=== PATIENT | female | born 1955 | race Two or more races ===

== ENCOUNTER 2019-01-01 20:31 | Inpatient (IN) | payer MEDICARE, OTHER ==
[~2019-01-01] VITALS: Ht 165.1 cm; Wt 101.3 kg
--- NOTE | 2019-01-01 20:45 | NUR ---
PT [id number] FROM HOME S/P WITNESS SYNCOPAL EPISODE ABOUT 20 SECONDS. -TRAUMA. +N/V,-D. BS 120. REC'D ABOUT 500ML NS EN ROUTE BY RA. PT AOX4. NAD NOTED. RESP EVEN AND UNLABORED. PT ON MONITOR IN BED 10 AWAITING MD DOWNING.
--- NOTE | 2019-01-01 21:25 | NUR ---
TECH AT BEDSIDE FOR EKG
[2019-01-01 22:07] LABS: ABG OXYGEN SATURATION 96.7 % (92.0-98.5); ABG PCO2 32.8 mmHg (35.0-45.0); ABG PH 7.524 (7.350-7.450); AaDO2 24.5 mmHg; COHb 0.3 % (0.5-1.5); MetHb 0.4 % (0.0-1.5); SITE, ABG Right Radial; VENT MODE, BG room air
--- NOTE | 2019-01-01 22:11 | NUR ---
PHLEB AT BEDSIDE FOR LAB DRAW
[2019-01-01] MEDS ORDERED: IV NS 0.9% 500 ML BAG IV ONE (22:30)
[2019-01-01 22:34] LABS: BASOPHILS % (AUTO) 0.3 % (0.0-2.0); EOSINOPHILS % (AUTO) 11.5 % (0.0-6.0); HEMATOCRIT 40 % (33-45); HEMOGLOBIN 13.9 g/dL (11.5-14.8); LYMPHOCYTES # (AUTO) 1.5 /CMM (0.8-4.8); LYMPHOCYTES % (AUTO) 11.4 % (20.0-44.0); MEAN CORPUSCULAR HGB CONC 35 g/dl (31.0-36.0); MEAN CORPUSCULAR VOLUME 90 fL (82-100); MONOCYTES # (AUTO) 0.9 /CMM (0.1-1.30); MONOCYTES % (AUTO) 6.6 % (2.0-12.0); NEUTROPHILS # (AUTO) 9.1 /CMM (1.8-8.9); NEUTROPHILS % (AUTO) 70.2 % (43.0-81.0); PLATELET COUNT (AUTO) 256 /CMM (150-450); RED BLOOD CELL COUNT(AUTO) 4.47 MIL/uL (4.0-5.2); WHITE BLOOD COUNT (AUTO) 12.9 K/uL (4.3-11.0)
[2019-01-01 22:43] LABS: CALCIUM, SERUM 9.3 mg/dL (8.5-10.1); CREATININE 1.1 mg/dL (0.6-1.3); POTASSIUM 2.9 mmol/L (3.5-5.1)
[2019-01-01 22:55] LABS: BILIRUBIN,TOTAL 1.7 mg/dL (0.2-1.0); TOTAL PROTEIN, SERUM 7.7 g/dL (6.4-8.2)
[2019-01-01 22:56] LABS: THYROID STIMULATING HORMONE 1.411 uIU/mL (0.358-3.74)
[2019-01-01] MEDS ORDERED: POTASSIUM CHLORIDE 20 MEQ TAB.PRT.SR PO ONE ×2 (23:30→23:33)
--- NOTE | 2019-01-01 23:32 | NUR ---
URINE COLLECTED AND SENT TO LAB
[2019-01-02] VITALS (9 sets, daily range): BP systolic 98–137; BP diastolic 57–86
--- NOTE | 2019-01-02 00:07 | NUR ---
RECEIVED CALL FROM LAB STATING NOT ENOUGH URINE. MADE AWARE.
--- NOTE | 2019-01-02 00:21 | NUR ---
PT TO BED 321-2
--- NOTE | 2019-01-02 00:30 | NUR ---
CALLED EPIC PANEL FOR ADMISSION, WAITING FOR [employer]OCIATE TIFFANY CALL BACK
[2019-01-02 00:53] LABS: APPEARANCE,URINE CLEAR (CLEAR); BILIRUBIN,URINE NEGATIVE (NEGATIVE); BLOOD, URINE TRACE-INTA Ery/uL (NEGATIVE); COLOR,URINE YELLOW (YELLOW); KETONES,URINE NEGATIVE (NEGATIVE); LEUKOCYTE ESTERASE ,URINE NEGATIVE (NEGATIVE); NITRITE, URINE NEGATIVE (NEGATIVE); PROTEIN,URINE NEGATIVE (NEGATIVE); UGLUCOSE NEGATIVE (NEGATIVE); UROBILINOGEN,URINE 0.2 EU/dL (0.2)
[2019-01-02 00:56] LABS: RBC,URINE 0-2 /HPF (0-2)
[2019-01-02 00:57] LABS: BACTERIA,URINE Rare /HPF (None Seen); SQUAMOUS EPITHELIAL CELL,UR Few /HPF (None Seen); WBC,URINE 0-2 /HPF (0-3)
[2019-01-02] MEDS ORDERED: Z GUARD REMEDY 2 OZ OINT TP PRN (01:00)
[2019-01-02] MEDS ORDERED: ACETAMINOPHEN 325 MG TABLET PO PRN (01:00)
[2019-01-02] MEDS ORDERED: MAG HYDROX/AL HYDROX/SIMETH 30 ML UDC PO PRN (01:00)
[2019-01-02] MEDS ORDERED: DEXTROSE 50%-WATER 50 ML DISP.SYRIN IV PRN (01:00)
[2019-01-02] MEDS ORDERED: MAGNESIUM HYDROXIDE 30 ML UDC PO PRN (01:00)
[2019-01-02] MEDS ORDERED: ONDANSETRON HCL/PF 4 MG/2 ML VIAL IVP PRN (01:00)
[2019-01-02] MEDS ORDERED: VANCOMYCIN 1.5 GM in IV D5W 500ml IV ONE (02:00)
--- NOTE | 2019-01-02 02:51 | NUR ---
REPORT GIVEN TO ALPHONSE CHANG FOR STEPHANIE
--- NOTE | 2019-01-02 03:15 | NUR ---
RN Notes Admitted patient from ER via gurney, awake, alert and oriented x3. Denies pain, nausea and vomiting at this time. Attached to telemonitor which reads normal sinus rhythm with heart rate at 67. Iv access on left AC patent and intact. Skin check done, clear and intact. Plan of care discussed with the patient and verbalized understanding.Safety measures and fall precaution in place with call light with in reach. Will continue to monitor patient.
[2019-01-02] MEDS: IV NS 0.9% 1,000 ML IV PRN ×2 (03:55→09:13)
[2019-01-02] MEDS ORDERED: VANCOMYCIN 500 MG VIAL ONE (04:19)
[2019-01-02] MEDS ORDERED: VANCOMYCIN 1 GM VIAL ONE (04:19)
[2019-01-02] MEDS ORDERED: PIPERACILLIN /TAZOBACTAM 3.375 G in IV D5W 50 ML IV SCH (06:00)
[2019-01-02] MEDS ORDERED: PIPERACILLIN /TAZOBACTAM 3.375 G VIAL IV ONE (06:06)
[2019-01-02] MEDS: BLOOD SUGAR DIAGNOSTIC 1 EACH STRIP IN SCH ×4 (07:08→21:27)
--- NOTE | 2019-01-02 07:35 | NUR ---
RN Notes Patient stable. Denies pain, nausea and vomiting. Ambulates to the bathroom with assist, patient verbalized right sided weakness. Fall precaution observed. All needs Attended. Endorsed to morning RN for continuity of care.
--- NOTE | 2019-01-02 08:00 | NUR ---
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 Denies pain. Attached to telemonitor which reads normal sinus rhythm with heart rate at 67. Iv access on left AC patent and intact with IVF NS at 100 ml/hr infusing well. Skin intact. Plan of care discussed with the patient and verbalized understanding.Safety measures and fall precaution in place with call light with in reach. Will continue to monitor patient.
[2019-01-02] MEDS ORDERED: HYDR25TA4 PO (08:10)
[2019-01-02] MEDS ORDERED: HYDR200T81 PO (08:10)
[2019-01-02] MEDS ORDERED: LOSA50TA39 PO (08:10)
[2019-01-02] MEDS ORDERED: LORA1TAB PO (08:10)
[2019-01-02] MEDS ORDERED: ESOM20CA PO (08:10)
[2019-01-02] MEDS ORDERED: FLEC100T2 PO (08:10)
[2019-01-02] MEDS ORDERED: NICO-677 TD (08:10)
[2019-01-02] MEDS ORDERED: ATOR40TA PO (08:10)
[2019-01-02] MEDS ORDERED: ASPI-1152 PO (08:10)
[2019-01-02] MEDS ORDERED: IBUP-1953 PO (08:10)
[2019-01-02] MEDS ORDERED: APIX5TAB PO (08:10)
[2019-01-02] MEDS ORDERED: ACET-2605 PO (08:10)
[2019-01-02] MEDS ORDERED: METO25TA3 PO (08:10)
[2019-01-02] MEDS ORDERED: FEE PK DOSING 1 MIN EA MC ONE (08:27)
[2019-01-02] MEDS ORDERED: NICOTINE PATCH (21MG) 21 MG PATCH.TD24 TD SCH (09:00)
[2019-01-02] MEDS ORDERED: PANTOPRAZOLE 40 MG VIAL IV SCH (09:00)
[2019-01-02] MEDS: ASPIRIN EC 81 MG TABLET.DR PO SCH (09:16)
[2019-01-02 09:22] LABS: THYROID STIMULATING HORMONE 1.035 uIU/mL (0.358-3.74)
[2019-01-02 09:23] LABS: PHOSPHORUS 3.5 mg/dL (2.5-4.9)
[2019-01-02] MEDS: HYDROXYCHLOROQUINE 200 MG TABLET PO SCH (10:08)
[2019-01-02] MEDS: FLECAINIDE ACETATE (100 MG) 100 MG TABLET PO SCH ×2 (10:09→21:22)
[2019-01-02] MEDS: PANTOPRAZOLE 40 MG TABLET.DR PO SCH (10:11)
[2019-01-02] MEDS: APIXABAN 5 MG TABLET PO SCH ×2 (11:29→18:04)
[2019-01-02] MEDS: CEFTRIAXONE 1 G in IV D5W 50 ML IV SCH (12:50)
--- NOTE | 2019-01-02 14:43 | NUR ---
ROBERT was informed by outsole caser Renae Boogie that pt. is interested in applying for In Home Support Services. ROBERT initiated [facility] process by calling [facility] . ROBERT spoke with [facility] ROBERT Corral and initiated the process. Pt's [facility] case ID number is [id number]. ROBERT updated Renae Boogie regarding SS application being initiated.
[2019-01-02] MEDS ORDERED: VANCOMYCIN 1 GM in IV D5W 250 ML IV SCH (17:00)
[2019-01-02] MEDS ORDERED: ATORVASTATIN 40 MG TABLET PO SCH (18:00)
--- NOTE | 2019-01-02 18:00 | NUR ---
PT RESTING IN BED DENYING ANY PAIN OR DISTRESS AND JUST C/O SHE CAN'T SLEEP.TYLENOL AND ATIVAN GIVEN WITH EFFECTIVE RESULT.CALM ENVIRONMENT AND DIM LIGHT PROVIDED.CALL LIGHT PLACED WITHIN REACH.
[2019-01-02] MEDS: LORAZEPAM 1 MG TABLET PO PRN (18:10)
--- NOTE | 2019-01-02 19:15 | NUR ---
RN Notes Received patient awake, on room air and tolerated well. Patient denies pain, nausea and vomiting. Verbalizing weakness on her right arm and leg and hard of hearing on her more on right ear. Plan of care discussed with the patient and verbalized understanding. Safety measures and fall precaution in place with call light within reach. Will continue to monitor patient.
[2019-01-03 06:08] LABS: BASOPHILS % (AUTO) 0.3 % (0.0-2.0); EOSINOPHILS % (AUTO) 16.2 % (0.0-6.0); HEMATOCRIT 41 % (33-45); HEMOGLOBIN 13.9 g/dL (11.5-14.8); LYMPHOCYTES % (AUTO) 7.3 % (20.0-44.0); MEAN CORPUSCULAR HGB CONC 34 g/dl (31.0-36.0); MEAN CORPUSCULAR VOLUME 91 fL (82-100); MONOCYTES # (AUTO) 0.8 /CMM (0.1-1.30); MONOCYTES % (AUTO) 5.7 % (2.0-12.0); NEUTROPHILS # (AUTO) 9.4 /CMM (1.8-8.9); NEUTROPHILS % (AUTO) 70.5 % (43.0-81.0); PLATELET COUNT (AUTO) 217 /CMM (150-450); WHITE BLOOD COUNT (AUTO) 13.4 K/uL (4.3-11.0)
[2019-01-03 06:23] LABS: ALANINE AMINOTRANSFERASE 300 U/L (12-78); ALBUMIN 2.9 g/dL (3.4-5.0); ALKALINE PHOSPHATASE 497 U/L (46-116); ASPARTATE AMINOTRANSFERASE 144 U/L (15-37); BILIRUBIN,TOTAL 1.8 mg/dL (0.2-1.0); CALCIUM, SERUM 9.7 mg/dL (8.5-10.1); CARBON DIOXIDE 28 mmol/L (21-32); CHLORIDE 101 mmol/L (98-107); CREATININE 1.1 mg/dL (0.6-1.3); GLUCOSE 119 mg/dL (74-106); MAGNESIUM 2.1 mg/dL (1.8-2.4); PHOSPHORUS 3.3 mg/dL (2.5-4.9); POTASSIUM 3.3 mmol/L (3.5-5.1); SODIUM SERUM 138 mmol/L (136-145); TOTAL PROTEIN, SERUM 7.5 g/dL (6.4-8.2); UREA NITROGEN, BLOOD 15 mg/dL (7-18)
[2019-01-03 06:27] LABS: CHOLESTEROL 109 mg/dL (<200); HDL CHOLESTEROL 29 mg/dL (40-60); LDL 63 mg/dL (0-99); THYROID STIMULATING HORMONE 1.273 uIU/mL (0.358-3.74); TRIGLYCERIDES 86 mg/dL (30-150)
[2019-01-03] MEDS: BLOOD SUGAR DIAGNOSTIC 1 EACH STRIP IN SCH ×4 (06:54→21:56)
--- NOTE | 2019-01-03 07:22 | NUR ---
RN Notes Patient slept well overnight, vital signs stable. Denies pain, nausea and vomiting. Assisted to the bathroom, fall precaution observed. No significant change in condition noted. All needs attended. Will endorse to morning RN for continuity of care.
--- NOTE | 2019-01-03 07:30 | NUR ---
MS RN NOTES PATIENT IN BED ALERT ORIENTED X 4. NO ACUTE DISTRESS NOTED, BREATHING UNLABORED. NO SOB NOTED. IV ACCESS PATENT AND INTACT. HOB ELEVATED. SAFETY MEASURES IN PLACE. CALL LIGHT WITHIN REACH. WILL CONTINUE TO MONITOR ACCORDINGLY.
[2019-01-03 08:00] VITALS: BP 116/60
[2019-01-03] MEDS ORDERED: POTASSIUM CHLORIDE 20 MEQ TAB.PRT.SR PO SCH (08:00)
[2019-01-03] MEDS: PANTOPRAZOLE 40 MG TABLET.DR PO SCH (08:10)
[2019-01-03] MEDS: NICOTINE PATCH (21MG) 21 MG PATCH.TD24 TD SCH (08:55)
[2019-01-03] MEDS: HYDROXYCHLOROQUINE 200 MG TABLET PO SCH (08:55)
[2019-01-03] MEDS: ASPIRIN EC 81 MG TABLET.DR PO SCH (08:55)
[2019-01-03] MEDS: APIXABAN 5 MG TABLET PO SCH ×2 (08:56→17:32)
[2019-01-03] MEDS: FLECAINIDE ACETATE (100 MG) 100 MG TABLET PO SCH ×2 (08:56→21:56)
[2019-01-03 09:00] VITALS: BP_SYST 110; BP_SYST 114; BP_SYST 116; BP_DIAS 60; BP_DIAS 68; BP_DIAS 70
[2019-01-03] MEDS: CEFTRIAXONE 1 G in IV D5W 50 ML IV SCH (12:18)
[2019-01-03] MEDS: INSULIN REGULAR, HUMAN 100 UNIT/ML 3 ML VIAL SQ PRN ×3 (12:26→22:01)
[2019-01-03] MEDS ORDERED: NICOTINE PATCH (21MG) 21 MG PATCH.TD24 TD SCH (12:30)
[2019-01-03] MEDS ORDERED: GUAIFENESIN/CODEINE 10 ML UDC PO PRN (12:30)
[2019-01-03] MEDS: P-EPHED SUL/LORATADINE (24H) 1 TAB.SR.24H PO SCH (12:59)
[2019-01-03 16:00] VITALS: BP 144/68
[2019-01-03] MEDS ORDERED: GUAIFENESIN 300 MG/15 ML UDC PO PRN (18:00)
--- NOTE | 2019-01-03 19:00 | NUR ---
MS RN NOTES PATIENT IN BED ALERT ORIENTED X 4. NO ACUTE DISTRESS NOTED, BREATHING UNLABORED. NO SOB NOTED. IV ACCESS PATENT AND INTACT. HOB ELEVATED. DUE MEDICATIONS GIVE, NO ASE NOTED. NEEDS ATTENDED AND ANTICIPATED. KEPT CLEAN DRY AND COMFORTABLE. SAFETY MEASURES IN PLACE. CALL LIGHT WITHIN REACH. ENDORSED TO NIGHT NURSE FOR CONTINUITY OF CARE.
--- NOTE | 2019-01-03 19:20 | NUR ---
MS/RN OPENING NOTES PT RECEIVED ASLEEP, OPENS EYES TO NAME. ON ROOM AIR, BREATHING EVEN AND UNLABORED. DENIES SOB AND PAIN AT THIS TIME. IV TO LAC PATENT AND INTACT. HOB ELEVATED. BILATERAL UPPER SIDE RAILS IN PLACE. BED IN LOW/LOCKED POSITION WITH CALL LIGHT IN REACH. WILL CONTINUE TO MONITOR
[2019-01-03 20:00] VITALS: BP_SYST 118; BP_SYST 141; BP_DIAS 49; BP_DIAS 59
[2019-01-03] MEDS: LORAZEPAM 1 MG TABLET PO PRN (22:09)
[2019-01-04 06:30] VITALS: BP_SYST 102; BP_SYST 125; BP_SYST 82; BP_DIAS 62; BP_DIAS 63; BP_DIAS 67
[2019-01-04] MEDS: BLOOD SUGAR DIAGNOSTIC 1 EACH STRIP IN SCH ×4 (06:33→21:19)
[2019-01-04] MEDS: INSULIN REGULAR, HUMAN 100 UNIT/ML 3 ML VIAL SQ PRN (06:34)
[2019-01-04] MEDS: PANTOPRAZOLE 40 MG TABLET.DR PO SCH (06:35)
--- NOTE | 2019-01-04 06:52 | NUR ---
MS/RN CLOSING NOTES PT AWAKE, SITTING UP IN BED. ON ROOM AIR, BREATHING EVEN AND UNLABORED. DENIES SOB AND PAIN. IN NO ACUTE DISTRESS. SLEPT WELL DURING SHIFT. IV TO LAC PATENT AND INTACT. NO SIGNIFICANT CHANGES OVERNIGHT. BED IN LOW/LOCKED POSITION WITH CALL LIGHT IN REACH. BILATERAL UPPER SIDE RAILS IN PLACE. WILL ENDORSE TO DAY SHIFT RN STEHPANIE.
[2019-01-04 07:07] LABS: BASOPHILS # (AUTO) 0.1 /CMM (0.0-0.2); BASOPHILS % (AUTO) 0.7 % (0.0-2.0); EOSINOPHILS % (AUTO) 20.7 % (0.0-6.0); HEMATOCRIT 42 % (33-45); LYMPHOCYTES # (AUTO) 2.1 /CMM (0.8-4.8); LYMPHOCYTES % (AUTO) 14.1 % (20.0-44.0); MEAN CORPUSCULAR HGB CONC 34 g/dl (31.0-36.0); MEAN CORPUSCULAR VOLUME 91 fL (82-100); MONOCYTES # (AUTO) 0.8 /CMM (0.1-1.30); MONOCYTES % (AUTO) 5.6 % (2.0-12.0); NEUTROPHILS # (AUTO) 8.8 /CMM (1.8-8.9); NEUTROPHILS % (AUTO) 58.9 % (43.0-81.0); PLATELET COUNT (AUTO) 264 /CMM (150-450); RED BLOOD CELL COUNT(AUTO) 4.59 MIL/uL (4.0-5.2)
[2019-01-04 07:19] LABS: CALCIUM, SERUM 9.6 mg/dL (8.5-10.1); MAGNESIUM 2.3 mg/dL (1.8-2.4); PHOSPHORUS 3.8 mg/dL (2.5-4.9); POTASSIUM 3.2 mmol/L (3.5-5.1)
--- NOTE | 2019-01-04 07:25 | NUR ---
MS/RN NOTE THE PATIENT ALERT AND ORIENTED X4. IN ROOM AIR AND DENIES SOB. RESPIRATION REGULAR AND UNLABORED. DENIES PAIN. THE PATIENT IN NO APPARENT DISTRESS. LAC G 18 PATENT AND SALINE LOCKED. BED LOW AND LOCKED. SIDE RAILS UP X3. CALL LIGHT WITHIN REACH. WILL CONTINUE TO MONITOR.
[2019-01-04] MEDS: HYDROXYCHLOROQUINE 200 MG TABLET PO SCH (08:53)
[2019-01-04] MEDS: ASPIRIN EC 81 MG TABLET.DR PO SCH (08:53)
[2019-01-04] MEDS: NICOTINE PATCH (21MG) 21 MG PATCH.TD24 TD SCH (08:53)
[2019-01-04] MEDS: FLECAINIDE ACETATE (100 MG) 100 MG TABLET PO SCH ×2 (08:53→21:20)
[2019-01-04] MEDS: APIXABAN 5 MG TABLET PO SCH ×2 (08:54→17:11)
[2019-01-04 09:17] LABS: BAND % (MANUAL) 1 % (0.0-5.0); EOSINOPHILS % (MANUAL) 17 % (0-4); LYMPHOCYTES % (MANUAL) 15 % (16-48); MONOCYTES % (MANUAL) 4 % (0-11.0); NEUTROPHILS % (MANUAL) 63 (42-76)
[2019-01-04] MEDS: POTASSIUM CHLORIDE 20 MEQ TAB.PRT.SR PO SCH ×2 (10:31→12:04)
[2019-01-04] MEDS: P-EPHED SUL/LORATADINE (24H) 1 TAB.SR.24H PO SCH (12:08)
[2019-01-04] MEDS: CEFTRIAXONE 1 G in IV D5W 50 ML IV SCH (13:18)
[2019-01-04 16:00] VITALS: BP 119/78
--- NOTE | 2019-01-04 18:19 | NUR ---
MS/RN NOTE THE PATIENT ALERT AND ORIENTED X4. IN ROOM AIR AND DENIES SOB. RESPIRATION REGULAR AND UNLABORED. DENIES PAIN. THE PATIENT IN NO APPARENT DISTRESS. LAC G 18 PATENT AND SALINE LOCKED. BED LOW AND LOCKED. SIDE RAILS UP X2. CALL LIGHT WITHIN REACH. 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
--- NOTE | 2019-01-04 19:10 | NUR ---
MS RN NOTE RECEIVED PT IN BED AND A/O X4. PT ON ROOM AIR AND DENIES SOB OR ACUTE DISTRESS. RESPIRATIONS EVEN AND UNLABORED. PT DENIES PAIN AT THIS TIME. LAC G 18 PATENT AND INTACT AND SL. BED LOW AND LOCKED WITH SIDE RAILS UP X2. CALL LIGHT WITHIN REACH. WILL CONTINUE TO MONITOR.
[2019-01-04 20:00] VITALS: BP 115/71
[2019-01-04] MEDS: LORAZEPAM 1 MG TABLET PO PRN (21:20)
[2019-01-05 06:34] LABS: BASOPHILS % (AUTO) 0.3 % (0.0-2.0); EOSINOPHILS % (AUTO) 21.1 % (0.0-6.0); HEMATOCRIT 38 % (33-45); HEMOGLOBIN 12.9 g/dL (11.5-14.8); LYMPHOCYTES % (AUTO) 14.7 % (20.0-44.0); MEAN CORPUSCULAR HGB CONC 34 g/dl (31.0-36.0); MEAN CORPUSCULAR VOLUME 90 fL (82-100); MONOCYTES # (AUTO) 0.7 /CMM (0.1-1.30); MONOCYTES % (AUTO) 4.9 % (2.0-12.0); NEUTROPHILS # (AUTO) 7.9 /CMM (1.8-8.9); PLATELET COUNT (AUTO) 224 /CMM (150-450); RED BLOOD CELL COUNT(AUTO) 4.24 MIL/uL (4.0-5.2); WHITE BLOOD COUNT (AUTO) 13.3 K/uL (4.3-11.0)
[2019-01-05] MEDS: BLOOD SUGAR DIAGNOSTIC 1 EACH STRIP IN SCH ×2 (06:52→12:00)
[2019-01-05 06:54] LABS: CALCIUM, SERUM 9.3 mg/dL (8.5-10.1); CREATININE 0.9 mg/dL (0.6-1.3); MAGNESIUM 2.2 mg/dL (1.8-2.4); POTASSIUM 3.8 mmol/L (3.5-5.1)
--- NOTE | 2019-01-05 07:15 | NUR ---
MS/RN NOTE THE PATIENT ALERT AND ORIENTED X4. IN ROOM AIR AND DENIES SOB. RESPIRATION REGULAR AND UNLABORED. DENIES PAIN. THE PATIENT IN NO APPARENT DISTRESS. LAC G 18 PATENT AND SALINE LOCKED. BED LOW AND LOCKED. SIDE RAILS UP X2. CALL LIGHT WITHIN REACH. WILL CONTINUE TO MONITOR.
--- NOTE | 2019-01-05 07:44 | NUR ---
MS RN NOTE PT IN BED AWAKE RESTING. PT A/O X4. PT ON ROOM AIR AND DENIES SOB OR ACUTE DISTRESS THROUGHOUT SHIFT. RESPIRATIONS EVEN AND UNLABORED. PT DENIES PAIN AT THIS TIME. LAC G 18 PATENT AND INTACT AND SL. BED LOW AND LOCKED WITH SIDE RAILS UP X2. CALL LIGHT WITHIN REACH. WILL ENDORSE TO ONCOMING NURSE FOR CONTINUATION OF CARE.
[2019-01-05 08:00] VITALS: BP 121/72
[2019-01-05 09:19] LABS: BAND % (MANUAL) 3 % (0.0-5.0); EOSINOPHILS % (MANUAL) 24 % (0-4); LYMPHOCYTES % (MANUAL) 17 % (16-48); MONOCYTES % (MANUAL) 5 % (0-11.0); NEUTROPHILS % (MANUAL) 51 (42-76)
[2019-01-05] MEDS: FLECAINIDE ACETATE (100 MG) 100 MG TABLET PO SCH (09:22)
[2019-01-05] MEDS: PANTOPRAZOLE 40 MG TABLET.DR PO SCH (09:22)
[2019-01-05] MEDS: ASPIRIN EC 81 MG TABLET.DR PO SCH (09:22)
[2019-01-05] MEDS: HYDROXYCHLOROQUINE 200 MG TABLET PO SCH (09:22)
[2019-01-05] MEDS: NICOTINE PATCH (21MG) 21 MG PATCH.TD24 TD SCH (09:23)
[2019-01-05] MEDS: APIXABAN 5 MG TABLET PO SCH (09:23)
[2019-01-05] MEDS ORDERED: CEFD300C3 PO (11:05)
[2019-01-05] MEDS: P-EPHED SUL/LORATADINE (24H) 1 TAB.SR.24H PO SCH (11:56)
[2019-01-05] MEDS: CEFTRIAXONE 1 G in IV D5W 50 ML IV SCH (13:37)
--- NOTE | 2019-01-05 15:30 | NUR ---
MS/RN NOTE THE PATIENT ALERT AND ORIENTED X4. DENIES SOB. IN ROOM AIR AND SATURATION AT 98%. DENIES PAIN. DISCHARGE INSTRUCTIONS GIVEN TO THE PATIENT AND SHE VERBALIZED UNDERSTANDING. THE PATIENT LEAVING THE HOSPITAL IN STABLE CONDITION.
== END 2019-01-05 15:49 | disposition home or self-care (01) | DRG 73 ==
LOC: ER 20:33 → TELE 01-02 01:08 → MED 01-02 11:17
PROVIDERS: ADMIT Internal Medicine; ATTEND Internal Medicine
DX: G90.8 Other disorders of autonomic nervous system (principal); I21.A1 Myocardial infarction type 2; K72.00 Acute and subacute hepatic failure without coma; E87.1 Hypo-osmolality and hyponatremia; E44.1 Mild protein-calorie malnutrition; E87.3 Alkalosis; E87.6 Hypokalemia; I10 Essential (primary) hypertension; E78.5 Hyperlipidemia, unspecified; Z86.73 Personal history of transient ischemic attack (TIA), and cerebral infarction without residual deficits; I48.0 Paroxysmal atrial fibrillation; Z90.49 Acquired absence of other specified parts of digestive tract; Z82.49 Family history of ischemic heart disease and other diseases of the circulatory system; Z88.5 Allergy status to narcotic agent; Z88.2 Allergy status to sulfonamides; Z91.041 Radiographic dye allergy status; Z79.82 Long term (current) use of aspirin; Z79.899 Other long term (current) drug therapy; K76.0 Fatty (change of) liver, not elsewhere classified; M32.9 Systemic lupus erythematosus, unspecified; D72.829 Elevated white blood cell count, unspecified; F32.9 Major depressive disorder, single episode, unspecified; Z72.0 Tobacco use; E66.9 Obesity, unspecified; Z68.37 Body mass index [BMI] 37.0-37.9, adult; I95.9 Hypotension, unspecified; J32.9 Chronic sinusitis, unspecified; K21.9 Gastro-esophageal reflux disease without esophagitis; R09.02 Hypoxemia
CPT/HCPCS: 36415; 36600; 70450-TC; 71045-TC; 76705-TC; 80048-TC; 80053-TC; 80061-TC; 80076-TC; 81000-TC; 82962-TC; 83605-TC; 83735-TC; 83880; 84100-TC; 84439-TC; 84443-TC; 84484-TC; 85025-TC; 85730-TC; 87040-TC; 87081-TC; 87086-TC; 93307-TC; 93880-TC; C9113; G0378; J0696; J1815; J2543; J3370; J7030; J7040; J7060